=== PATIENT | female | born 1995 | race Caucasian/White ===

== ENCOUNTER 2025-05-16 08:21 | Outpatient (AMB) | payer OTHER, SELFPAY ==
--- OUTSIDE RECORDS SUMMARY | 2025-05-12 19:46 | XMS_ITS | Encounter Summary ---
Author Organization [employer] Address [address] [place] [address] Care Team Providers Care Cloth Hand Name Role Phone Lulu Martinez Primary Care Provider [phone] Reason for Visit * Reason Comments Headache Migraine like sympto ms/feeling sweaty h/o migraines. Symptoms since yesterday Encounter Details Date Type Department Care Team (Late st Contact Info) Description 05/12/2025 7:46 PM EDT - 05/12/2025 9:54 PM EDT Emergency [facility] Emergency [address] [place] [phone] Other migraine without status migrainosus, not intractable (Primary Dx) Discharge Disposition: Home or Self Care Social History Tobacco Use Types Packs/Day Years Used Date Smoking Tobacco: Never Smokeless Tobacco: Never Alcohol Use Standard Drinks/Week Comments No 0 (1 standard drink = 0.6 oz pur e alcohol) Housing Instability Answer Date Recorde d Are you worried that in the next 2 months you may not have stable housing? No 11/14/2024 Food Access & Nutrition Answer Date Rec orded Do you have access to a vari ety of food including fruits and vegetables? Yes 11/14/2024 Health Literacy Answer Date Recorded How often do you need to hav e someone help you when you read instructions, pamphlets, or other written material from your doctor or pharmacy? Never 11/14/2024 Caregiver: How often do you need to have someone help you when you read instructions, pamphlets, or other written material from your doctor or pharmacy? Not on file 11/14/2024 Financial Risk Answer Date Recorded How hard is it for you to pa y for the very basics like food, housing, medical care, and air conditioning / heating? Very hard 11/14/2024 Transportation Answer Date Recorded Has the lack of transportati on kept you from meetings, work, or from getting things needed for daily living? No Has the lack of transportati on kept you from medical appointments or from getting medications? No 11/14/2024 Social Isolation Answer Date Recorded How often do you feel lonely or isolated from th ose around you? Never 11/14/2024 Food Risk Answer Date Recorded Within the past 12 months we worried whether our food would run out before we got money to buy more. Never true 11/14/2024 Within the past 12 months th e food we bought just didn't last and we didn't have money to get more. Never true 11/14/2024 Dependent Care Answer Date Recorded Do you need help finding or paying for care for your loved ones. For example, children's service worker or elderly care for an older adult? No 11/14/2024 Education Answer Date Recorded Do you think completing more education or training, like finishing a GED, going to college, or learning a trade, would be helpful for you? No 11/14/2024 Employment and Income Answer Date Recor ded During the last four weeks, have you been actively looking for work? No 11/14/2024 Living Situation Answer Date Recorded What is your living situation? 0 11/14/2024 Comments No Sex and Gender Information Value Date Recorded Sex Assigned at Not on file Legal Sex Female 6:13 AM EST Gender Identity Not on file Sexual Orientation Not on file documented as of this encounter Last Filed Vital Signs Vital Sign Reading Time Taken Comments Blood Pressure 112/85 05/12/2025 7:05 PM EDT Pulse 78 05/12/2025 7:05 PM EDT Temperature 36.7 C (98 F) 05/12/2025 7:05 PM EDT Respiratory Rate 20 05/12/2025 7:05 PM EDT Oxygen Saturation 98% 05/12/2025 7:05 PM EDT Inhaled Oxygen Concentration - - Weight 63.5 kg (140 lb) 05/12/2025 7:05 PM EDT Height 154.9 cm (5' 1 ) 05/12/2025 7:05 PM EDT Body Mass Index 26.45 05/12/2025 7:05 PM EDT documented in this encounter Discharge Instructions * Discharge Instructions* VIVIANA Dodson - 05/12/2025 9:24 PM EDT Recommend 600 mg ibuprofen, 1000 mg Tylenol and 50 mg of Benadryl should you continue to have headache symptoms at home. Return to the emergency department with any numbness or weakness of extremity, drooling, blurred vision new worsening or concerning symptoms. * Attachments The following attachments cannot be sent through Care Everywhere. * Headaches: Avoiding Triggers: Video (Tristanian) * Headaches: Keeping a Diary: Video (Tristanian) documented in this encounter Medications at Time of Discharge Ajovy Syringe 225 mg/1.5 mL syringe 1.5 mL (225 mg total). 11/13/2024 albuterol HFA (PROAIR HFA ; PROVENTIL HFA ; VENTOLIN HFA) 90 mcg/actuation inhalerIndications:M ild intermittent asthma without complication Inhale 2 puffs by mouth every 6 (six) hours if needed for wheezing. 6.7 g 08/28/2024 hydrOXYzine HCL (ATARAX) 25 mg tabletIndications:Ge neralized anxiety disorder,Panic disorder,Primary insomnia TAKE 1 TABLET BY MOUTH EVERYDAY AT BEDTIME 60 tablet 04/17/2025 ondansetron ODT (ZOFRAN-ODT) 4 mg disintegrating tablet LET 1 TABLET DISSOLVE ON TOP OF THE TONGUE EVERY DAY FOR 30 DAYS PARoxetine (PAXIL) 10 mg tabletIndications:Ge neralized anxiety disorder,Panic disorder TAKE 1 TABLET BY MOUTH EVERY DAY IN THE MORNING 90 tablet 04/15/2025 documented as of this encounter Discharge Disposition Disposition Code Departure Means Destination Comment s Home or Self Care documented in this encounter Progress Notes * Natalie Estrada RN - 05/12/2025 7:06 PM EDT Pt c/o migraines since yesterday. Hx of migraines. Pt takes medication injection once a month for her migraines. +photophobia with nausea. documented in this encounter Plan of Treatment Upcoming Encounters Date Type Department Care Team (Late st Contact Info) Description 05/19/2025 3:45 PM EDT Treatment [facility] Occupational Therapy [address] [place] [phone] Matt Andre, OT 05/21/2025 3:30 PM EDT Treatment [facility] Occupational Therapy [address] [phone] Paulie Luque COTA/L 05/26/2025 4:45 PM EDT Treatment [facility] Occupational Therapy [address] [place] [phone] Matt Andre, OT 06/13/2025 8:30 AM EDT Office Visit Adult [address] [phone] Lulu Martinez PA [address] [place] [address] 07/28/2025 1:20 PM EDT Consult Gastroenterology [address] [phone] Kira Paz PA [address] [address] 07/28/2025 2:15 PM EDT Office Visit General Surgery [facility] [address] [phone] Lester Mares MD [address] [address] 08/06/2025 2:45 PM EDT Office Visit Orthopedic Surgery [facility] 175 [facility] [address] [place] [phone] Wendi Moraes PA [address] [place] [phone] Pending Results Name Type Priority Associated Diagnoses Date /Time POC , urine manually resulted Point of Care Testing STAT 05/12/2025 7:57 PM EDT Scheduled Orders Name Type Priority Associated Diagnoses Orde r Schedule POC , urine manually resulted Point of Care Testing STAT STAT for 1 Occurrences starting 05/12/2025 until 05/12/2025 documented as of this encounter Goals Goal Patient Goal Type Associated Problems Recent Progress Patient-Stated? Author Pt goal General Yes Matt Andre, OT Note: For my hand to be fixed STG 4-6 visits General No Matt Andre, OT Note: Patient will report <=5/10 pain in R IF, Patient will report <=9/10 pain in R IF with activity, Patient will demo R fresh foods cake decorator strength >= 22 to be able to hold a hair brush, Patient will demo improved FMC as evidenced by R 9 hole peg test<= 24 sec to be able to open packages, Patient will demo improved functional use of R upper extremity as evidenced by Quick Dash score <= 45 to be able to sweep the floor, and Patient will perform initial HEP MOD I LTG 12 visits General No Matt Andre, OT Note: Patient will report <=3/10 pain in R IF, Patient will report <=5/10 pain in R IF with activity, Patient will demo R fresh foods cake decorator strength >= 25 to be able to hold a pot for cooking, Patient will demo improved FMC as evidenced by R 9 hole peg test<= [address] papers in a folder with minimal sx, Patient will demo improved functional use of R upper extremity as evidenced by Quick Dash score <= 30 to be able to mop the floor, and Patient will perform HEP MOD I documented as of this encounter Visit Diagnoses Diagnosis Other migraine without status migrainosus, not intractable- Primary documented in this encounter Administered Medications Inactive Administered Medications - up to 3 most recent administrations Medication Order MAR Action Action Date Dose Rate Site dexAMETHasone (DECADRON) injection 10 mg 10 mg, intramuscular, Once, On Mon05/12/25 at 1951, For 1 dose Given 05/12/2025 8:02 PM EDT 10 mg Left Anterior Thigh ketorolac (TORADOL) injection 15 mg 15 mg, intramuscular, Once, On Mon05/12/25 at 1951, For 1 dose Given 05/12/2025 8:02 PM EDT 15 mg Left Deltoid metoclopramide (REGLAN) injection 10 mg 10 mg, intramuscular, Once, On Mon05/12/25 at 1951, For 1 dose, Doses LESS than or equal to 10 mg can be given IV push undiluted over 1 minute Given 05/12/2025 8:02 PM EDT 10 mg Right Deltoid documented in this encounter Active and Recently Administered Medications Times are shown in EDT. Scheduled Medication Order 05/10/2025 05/11/2025 05/12/2025 dexAMETHasone (DECADRON) injection 10 mg (COMPLETED) 10 mg, intramuscular, Once, On Mon05/12/25 at 1951, For 1 dose 2001 (Given - Provid er: Joanna Benitez RN) ketorolac (TORADOL) injection 15 mg (COMPLETED) 15 mg, intramuscular, Once, On Mon05/12/25 at 1951, For 1 dose 2001 (Given - Provid er: Joanna Benitez RN) metoclopramide (REGLAN) injection 10 mg (COMPLETED) 10 mg, intramuscular, Once, On Mon05/12/25 at 1951, For 1 dose, Doses LESS than or equal to 10 mg can be given IV push undiluted over 1 minute 2001 (Given - Provid er: Joanna Benitez RN) documented in this encounter Additional Health Concerns Assessment Noted Time PHQ-9 Depression Total Score: 6 11/14/19 25 3:39 PM EST documented as of this encounter Care Teams Cloth Hand Relationship Specialty Start Date End Date Lulu Martinez PA [address] [facility] [place] [address] PCP - General Primary Care 04/23/25 documented as of this encounter
--- NOTE | 2025-05-16 08:29 | A.OFFVIS_ITS ---
Intake Visit Reasons: follow up Allergies No Known Allergies Allergy (Unverified 05/16/25 08:29) Medication List - Last Reconciled 05/16/25 by Collette Rosa CNP eletriptan 20 mg PO DAILY PRN 30 days fremanezumab-vfrm (Ajovy Syringe) mg subcut naproxen 500 mg PO BID ondansetron 4 mg PO DAILY HPI Comments Details: 30-year-old woman with migraines. Migraines were better with Ajovy, down to about 4x/month. Eletriptan as needed helped if she took medication right away, but she was having trouble getting medication from pharmacy. She was seen at [facility] ER earlier this week for migraine, as she ran out of eletriptan and medication was out of stock at pharmacy. [facility] Medical History (Updated 05/16/25 @ 08:31 by Collette Rosa CNP) Migraine without aura Review of Systems Const Denies chills, Denies daytime sleepiness, Reports difficulty sleeping, Denies fatigue, Denies fever(s), Denies frequent falls, Reports headache(s), Denies increased appetite, Denies poor appetite, Denies snoring, Denies weakness, Denies weight gain and Denies weight loss Eyes Denies loss of vision ENT Denies vertigo, Denies dizziness and Reports headache(s) Card Denies chest pain at rest, Denies chest pain with activity, Denies syncope, Denies leg edema and Denies palpitations Resp Denies snoring GI Denies constipation, Denies heartburn, Denies diarrhea and Denies nausea Denies urinary frequency, Denies urinary incontinence and Denies urinary urgency Musc Denies abnormal gait, Denies numbness and Denies tingling Skin/Breast Denies dry skin and Denies rash Neuro Denies abnormal gait, Denies vertigo, Denies dizziness, Denies syncope, Denies frequent falls, Reports headache(s), Denies lack of coordination, Denies loss of vision, Denies memory loss, Denies numbness, Denies restless legs, Denies seizure-like activity, Denies tingling, Denies paresthesias, Denies tremor(s) and Denies weakness Psych Reports anxiety, Denies depression, Denies auditory hallucinations, Denies memory loss, Denies visual hallucinations and Denies suicidal ideation Endo Denies fatigue and Denies palpitations Physical Exam Const Other: General Appearance:? normal, in no acute distress. Skin:? no rashes, no significant birthmarks. Heart:? S1, S2 normal, no murmurs. Lungs:? clear anteriorly and posteriorly. Extremities:? no edema. Psych:? alert, oriented, cognitive function intact, cooperative with exam. Neuro Other: Mental Status:?Normal attention, orientation, memory and affect.? Cranial Nerves:?Pupils are equal, round and reactive to light. External occular muscles are intact. Visual louise are full. Face is symmetrical. Facial sensations are normal. Tongue is midline. Palate elevates symmetrically. Shoulder shrugging is normal. Hearing to bedside conversation is normal. Motor Examination:?Normal muscle tone, bulk and strength,?Deep tendon reflexes are 2+,?Plantars are flexor.? Sensory Exam:?....? Coordination:?No ataxia,?no titubation.? Gait Exam: Within normal limits. Cerebellar Signs:?Rhjiks-bd-dmbj is okay. Extrapyramidal System:?No tremor, rigidity with normal facial expressions.? Pronator Drift:?Not present.? Involuntary Movements:?No tremors seen.? Speech:?Normal.? Assessment & Plan Assessment & Plan (1) Migraine without aura: Code(s): G43.009 - Migraine without aura, not intractable, without status migrainosus Category: Medical Qualifiers: Status migrainosus presence: without status migrainosus Intractability: not intractable Qualified Code(s): G43.009 - Migraine without aura, not intractable, without status migrainosus Plan: Continue Ajovy Solution Prefilled Syringe 225mg/1.5mL 1.5mL subcutaneous monthly. Continue ondansetron 4mg 1 tablet as needed for nausea/vomiting. Continue eletriptan 20mg 1 tablet as needed for migraine. Start [id number] 50-325-40mg 1-2 tabs as needed for headache, use/side effects reviewed. Plan Meds tried: sumatriptan, rizatriptan, topiramate, propranolol, amitriptyline, verapamil, Depakote, Nurtec Medications: New voikluwhhn-qkhanytnjmduv-rozd 50-325-40 mg 1 - 2 tabs PO DAILY PRN 10 tabs 2RF migraine 30 days Coding Level of Care Code Est Pt Level 4 (40493) Diagnoses Migraine without aura and without status migrainosus, not intractable G43.009 Status migrainosus presence: without status migrainosus Intractability: not intractable
== END 2025-05-16 08:44 | disposition home or self-care (01) ==
LOC: HO.HSM 08:22
PROVIDERS: PCP Pediatrics; Visit Provider Registered Nurse
DX: G43.009 Migraine without aura, not intractable, without status migrainosus (principal)
CPT/HCPCS: 99214

== ENCOUNTER → 2025-05-16 08:21 | Outpatient (BNVA) | payer OTHER, SELFPAY | PROVIDERS: PCP Pediatrics; Visit Provider Registered Nurse | DX: G43.009 Migraine without aura, not intractable, without status migrainosus (principal); Z79.899 Other long term (current) drug therapy | CPT/HCPCS: 99212 ==